=== PATIENT | female | born 1995 | race Caucasian/White ===

== ENCOUNTER 2020-04-11 21:36 | Emergency (ER) | payer BC, OTHER ==
[2020-04-11 21:40] VITALS: BP 104/81; PULSE 84; TEMP 97.9; BMI 24.7
== END 2020-04-11 22:18 | disposition home or self-care (01) ==
LOC: JER 21:36
DX: U07.1 COVID-19 (principal)
CPT/HCPCS: 99284-25; C9803; U0003

== ENCOUNTER 2021-08-30 03:22 | Inpatient (IN) | payer OTHER ==
[2021-08-30] MEDS ORDERED: DEXTROSE 5%-LACTATED RINGERS 1,000 ML IV SCH (04:12)
[2021-08-30] MEDS ORDERED: FENTANYL/BUPIVACAINE/NS/PF - PCEA - 50 ML DISP.SYRIN EP ONE ×4 (09:13→20:51)
[2021-08-30] MEDS ORDERED: ELECTROLYTE-148 SOLN 1,000 ML IV SCH (09:45)
[2021-08-30] MEDS: FENTANYL/BUPIVACAINE/NS/PF - PCEA - 50 ML DISP.SYRIN EP SCH ×4 (10:05→21:00)
[2021-08-30] MEDS ORDERED: AMPICILLIN SODIUM 2 GM VIAL ONE (11:56)
[2021-08-30] MEDS ORDERED: NALOXONE HCL 0.4 MG/ML VIAL IVPUSH PRN (13:11)
[2021-08-30 13:15] LABS: POC NITRAZINE NEG
[2021-08-30 14:42] VITALS: BMI 30.4
[2021-08-30] MEDS ORDERED: BUPIVACAINE HCL/PF 0.25% (2.5MG/ML) 10 ML VIAL ONE (16:00)
[2021-08-30] MEDS ORDERED: OXYTOCIN 30 UNITS in 0.9% NS 30 UNIT/500 ML INFUS.BAG IVPB ONE (16:16)
[2021-08-30] MEDS ORDERED: OXYTOCIN 30 UNITS in 0.9% NS 30 UNIT/500 ML INFUS.BAG IVPB SCH (16:20)
[2021-08-30] MEDS ORDERED: OXYTOCIN 20 UNITS in 0.9% NS 20 UNIT/1,000 ML INFUS.BAG IV ONE (22:31)
[2021-08-30] MEDS ORDERED: MISOPROSTOL 200 MCG TABLET ONE (23:59)
[2021-08-31 00:38] LABS: CORD pH 7.265 (7.14-7.44)
[2021-08-31 00:38] LABS: CORD BASE EXCESS -8.5 mmol/L (0-2); CORD HCO3 20.8 mmHg (20-29); CORD PCO2 57.3 mmHg (30-78); CORD pH 7.177 (7.14-7.44)
[2021-08-31] MEDS ORDERED: ACETAMINOPHEN 325 MG TABLET (FP) PO PRN (00:42)
[2021-08-31] MEDS ORDERED: BENZOCAINE 20% 57 GM BOTTLE TP PRN (00:42)
[2021-08-31] MEDS ORDERED: WITCH HAZEL 50% (TUCKS) 40 PAD/JAR PAD TP PRN (00:42)
[2021-08-31] MEDS ORDERED: METHYLERGONOVINE MALEATE 0.2 MG/1 ML AMP IM PRN (00:42)
[2021-08-31] MEDS ORDERED: BENZOCAINE 28 GM HEMORRHOIDAL OINTMENT TP PRN (00:42)
[2021-08-31] MEDS ORDERED: BISACODYL 10 MG SUPP.RECT RC PRN (00:42)
[2021-08-31] MEDS ORDERED: OXYTOCIN 20 UNITS in 0.9% NS 20 UNIT/1,000 ML INFUS.BAG IV SCH (00:45)
[2021-08-31] MEDS: IBUPROFEN 600 MG TABLET (FP) PO PRN ×4 (04:15→23:10)
[2021-08-31 12:54] LABS: BASO % 0.2 % (0-2.0); EOS % 0.4 % (0-4.5); HEMATOCRIT 24.5 % (32.4-45.2); HEMOGLOBIN 8.3 GM/dL (10.7-15.3); MCH 28.3 pg (25.7-33.7); MCHC 34.1 g/dl (32.0-36.0); MEAN CELL VOLUME 83.1 fl (80-96); MEAN PLT VOLUME 10.5 fl (7.5-11.1); MONO % 6.7 % (3.8-10.2); NEUT % 80.7 % (42.8-82.8); PLATELET COUNT 156 10^3/uL (134-434); RBC 2.95 M/mm3 (3.60-5.2); RDW 13.3 % (11.6-15.6); WHITE BLOOD COUNT 16.7 K/mm3 (4.0-10.0)
[2021-09-01] MEDS: IBUPROFEN 600 MG TABLET (FP) PO PRN (06:10)
[2021-09-01 08:22] VITALS: BP 118/70; PULSE 90; TEMP 98.5
[2021-09-01 09:13] LABS: BASO % 0.5 % (0-2.0); EOS % 0.7 % (0-4.5); HEMATOCRIT 24.5 % (32.4-45.2); HEMOGLOBIN 8.1 GM/dL (10.7-15.3); LYMPH % 20.6 % (8-40); MCH 27.9 pg (25.7-33.7); MCHC 33.2 g/dl (32.0-36.0); MEAN CELL VOLUME 84.1 fl (80-96); MEAN PLT VOLUME 10.1 fl (7.5-11.1); MONO % 5.2 % (3.8-10.2); PLATELET COUNT 158 10^3/uL (134-434); RBC 2.92 M/mm3 (3.60-5.2); RDW 13.4 % (11.6-15.6); WHITE BLOOD COUNT 13.4 K/mm3 (4.0-10.0)
[2021-09-01] MEDS ORDERED: SENNOSIDES/DOCUSATE COMBO (SENNA PLUS) TABLET (UD) PO PRN (22:00)
== END 2021-09-01 12:00 | disposition home or self-care (01) | DRG 807 ==
LOC: JDEL 03:22 → JLDR 08:43 → J3W 08-31 01:50
PROVIDERS: ADMIT Obstetrics & Gynecology; ATTEND Obstetrics & Gynecology
PROC: 10E0XZZ Delivery of Products of Conception, External Approach (ICD-10-PCS; principal; 2021-08-30)
PROC: 0W8NXZZ Division of Female Perineum, External Approach (ICD-10-PCS; 2021-08-30)
DX: O80 Encounter for full-term uncomplicated delivery (principal); Z37.0 Single live birth; Z3A.39 39 weeks gestation of pregnancy
CPT/HCPCS: 36415; 36600; 59025; 59409; 76819-TC; 82803; 83986-QW; 85025